=== PATIENT | male | born 1985 | race Caucasian/White ===

== ENCOUNTER 2020-07-03 21:34 | Emergency (ER) | payer OTHER ==
[2020-07-03 22:10] LABS: BASOPHIL 0.3 % (0-2); EOSINOPHIL 0 % (0-5); HCT 43.6 % (42.0-52.0); HGB 15.3 g/dl (13.2-18.0); LYMPHOCYTE 11.9 % (15-48); MCH 30.6 pg (25.0-31.0); MCHC 35.1 g/dL (32.0-36.0); MCV 87.2 fL (78.0-100.0); MONOCYTE 5.3 % (0-12); MPV 11.6 fL (6.0-9.5); NEUTROPHIL 82.2 % (41-80); NRBC 0; PLT 280 K/uL (150-400); RDW 12.1 % (11.5-14.0); WBC 12.9 K/uL (4.0-10.5)
[2020-07-03 22:11] LABS: BILIRUBIN NEGATIVE (NEGATIVE); BLOOD NEGATIVE Ery/uL (NEGATIVE); CLARITY CLEAR (CLEAR); COLOR YELLOW (YELLOW); GLUCOSE (U) NORMAL (NORMAL); LEUKOCYTES NEGATIVE Leu/uL (NEGATIVE); NITRITE NEGATIVE (NEGATIVE); PROTEIN NEGATIVE (NEGATIVE); SPECIFIC GRAVITY >=1.030 (1.001-1.030); UROBILINOGEN 0.2 mg/dL (0.2-1.0); pH 5.5 (5.0-9.0)
[2020-07-03 22:15] LABS: AMPHETAMINES NEGATIVE (NEGATIVE); BARBITURATES NEGATIVE (NEGATIVE); ECSTASY (MDMA) NEGATIVE (NEGATIVE); MARIJUANA (THC) NEGATIVE (NEGATIVE); METHADONE NEGATIVE (NEGATIVE); OPIATES NEGATIVE (NEGATIVE); OXYCODONE NEGATIVE (NEGATIVE)
[2020-07-03 22:27] LABS: BILIRUBIN - TOTAL 0.5 mg/dL (0.2-1.0); BUN/CREAT RATIO (CALC) 21.2 RATIO; CREATININE 0.8 mg/dL (0.67-1.17); GLOBULIN (CALCULATION) 3.3 g/dL; POTASSIUM 4.1 mmol/L (3.5-5.1); TOTAL PROTEIN 7.3 g/dL (6.4-8.2)
== END 2020-07-03 23:01 ==
LOC: FER 21:34
PROVIDERS: Emergency Medicine
DX: T40.601A Poisoning by unspecified narcotics, accidental (unintentional), initial encounter (principal); R94.5 Abnormal results of liver function studies
CPT/HCPCS: 36415; 80053; 80305; 81003; 84484; 85025; 93005